=== PATIENT | male | born 1985 | race Caucasian/White ===

== ENCOUNTER 2024-07-31 02:14 | Emergency (ER) | payer OTHER, SELFPAY ==
[2024-07-31 02:24] VITALS: BP 157/97; PULSE 53; TEMP 36.6; O2SAT 96; BMI 24.4
--- NOTE | 2024-07-31 02:35 | CT_ITS ---
The [address] [address] Patient Name: KOLTON HERNANDEZ MRN: [id number] date: 1985 Sex: M Assigned Patient Location: ER Current Patient Location: ER Accession/Order Number: [id number] Exam Date: 07/31/2024 03:10 Report Date: 07/31/2024 04:00 At the request of: IRAM MARKER Procedure: CT abdomen pelvis w con EXAM: CT abdomen pelvis w con HISTORY: RUQ and epigastric abd pain COMPARISON: None. TECHNIQUE: Axial CT images through the abdomen and pelvis were obtained with coronal and sagittal reformats. Dose reduction techniques were achieved by using automated exposure control and/or adjustment of mA and/or kV according to patient size and/or use of iterative reconstruction technique. FINDINGS: There is mild bibasilar atelectasis. Abdomen: There is hepatic steatosis. There is focal fatty sparing along the gallbladder. There is a 1.2 x 1.1 cm enhancing lesion in the right hepatic lobe (series 3, image 44). The spleen is unremarkable. There is no intra or extrahepatic biliary duct dilatation. There is cholelithiasis with pericholecystic inflammation. The pancreas, adrenal glands, kidneys, and bowel loops, including the appendix, are unremarkable. There is no mesenteric or retroperitoneal lymphadenopathy. Pelvis: The bladder and rectum are unremarkable. There is no iliac or inguinal lymphadenopathy. Bone windows show no aggressive osseous lesions. CT/CT abdomen pelvis w con IMPRESSION: 1. Cholelithiasis with mild pericholecystic inflammation. Consider further evaluation with a right upper quadrant ultrasound examination as these findings could represent acute cholecystitis. 2. Hepatic steatosis. 3. Normal appendix. 4. Enhancing lesion in the right hepatic lobe, likely representing a hemangioma. Electronically authenticated by: Andrew JI Date: 07/31/2024 04:00
[2024-07-31 02:41] LABS: Basophils Percent Auto 0.4 % (0.2-2.0); Eosinophils Absolute Auto 0.3 10^3/uL (0.0-0.7); Eosinophils Percent Auto 3.6 % (0.9-7.0); Hematocrit 50.3 % (42.0-54.0); Hemoglobin 17.2 g/dL (14.0-18.0); Immature Granulocytes Abs Auto 0.02 10^3/uL (0.00-0.03); Immature Granulocytes Pct Auto 0.2 % (0.0-0.5); Lymphocytes Absolute Auto 2.5 10^3/uL (1.2-3.8); Lymphocytes Percent Auto 30.3 % (20.5-60.0); Mean Corpuscular HGB Conc 34.2 g/dL (29.9-35.2); Mean Corpuscular Hemoglobin 29.4 pg (25.9-34.0); Mean Platelet Volume 10.1 fL (9.5-13.5); Monocytes Absolute Auto 0.6 10^3/uL (0.3-0.8); Monocytes Percent Auto 6.7 % (1.7-12.0); Neutrophils Absolute Auto 4.8 10^3/uL (1.4-6.5); Neutrophils Percent Auto 58.8 % (43.0-75.0); Platelet Count 275 10^3/uL (150-450); Red Blood Count 5.85 10^6/uL (4.70-6.10); Red Cell Distribution Width 12.3 % (11.0-15.0); White Blood Count 8.2 10^3/uL (4.0-11.0)
[2024-07-31] MEDS: KETOROLAC TROMETHAMINE 30 MG/ML VIAL IVP (02:51)
[2024-07-31] MEDS: ONDANSETRON PF 4 MG/2 ML VIAL IV (02:51)
[2024-07-31] MEDS: 0.9 % SODIUM CHLORIDE 1,000 ML 1000 ML IV (02:51)
[2024-07-31 03:05] LABS: Alanine Aminotransferase 118 U/L (16-63); Albumin Globulin Ratio 1.1; Albumin Level 4.4 g/dL (3.4-5.0); Alkaline Phosphatase 90 U/L (46-116); Anion Gap 11.6; Aspartate Amino Transferase 41 U/L (15-37); BUN Creatinine Ratio 9.8; Bilirubin Total 0.6 mg/dL (0.2-1.0); Calcium 9.5 mg/dL (8.5-10.1); Carbon Dioxide 28.2 mmol/L (21.0-32.0); Chloride 103 mmol/L (98-107); Estimated GFR (African America >60 (>=60 mL/min/1.73m^2); Estimated GFR (Non-African Ame >60 (>=60 mL/min/1.73m^2); Glucose 120 mg/dL (74-106); Potassium 3.8 mmol/L (3.5-5.1); Sodium 139 mmol/L (136-145); Total Protein 8.4 g/dL (6.4-8.2); Troponin I High Sensitivity 21.6 pg/mL (4.0-76.1)
[2024-07-31 03:50] VITALS: BP 113/70; PULSE 66; O2SAT 95
--- NOTE | 2024-07-31 04:05 | ED.ABDPAIN1 ---
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 He states he was already having some abdominal pain when he ate the [place] cheese steak. He has nausea but no vomiting. He states he has chronic GI issues including diarrhea. He does have a physician in [place] where he lives. He denies any chest pain or shortness of breath. He does not drink alcohol. Related Data Home Medications ?Medication ?Instructions ?Recorded ?Confirmed No Known Home Medications 07/31/24 07/31/24 Allergies Allergy/AdvReac Type Severity Reaction Status Date / Time No Known Drug Allergies Allergy Verified 07/31/24 02:28 Review of Systems ROS Status of ROS 10 or more systems reviewed and unremarkable except as noted in history and below PFSH PFSH Social History Little interest or pleasure in doing things: not at all Feeling down, depressed, or hopeless: not at all Exam Narrative Exam Narrative: Vital signs and Nursing Notes reviewed: Patient is a febrile with a normal pulse, normal respiratory rate, he is not hypoxic with pulse ox of 95% on room air General: Awake, alert, oriented, thin uncomfortable appearing adult male, he is holding his epigastrium and right upper quadrant and writhing on the bed, no respiratory distress, no active vomiting HEENT: Normocephalic atraumatic, mucous membranes are moist and pink, eyes are clear, normal conjunctiva, vision is grossly intact Chest: Lungs are clear to auscultation with good air entry, there is no wheezing rhonchi or rales appreciated no accessory muscle use, patient is speaking in complete sentences-no chest wall tenderness to palpation CVS: Regular rate and rhythm S1-S2, no murmurs rubs or gallops, pulses are brisk and equal bilaterally ABD: Softly distended, tenderness in the right upper quadrant with positive Boyd sign and epigastrium. The remainder of the abdominal exam is benign Extremities: Moving all extremities, no lower extremity tenderness or swelling noted, negative Homans' sign, pulses are brisk and equal bilaterally Skin: Normal in appearance without rash,pallor, petechiae or purpura Neuro: No focal deficits Constitutional Vital Signs, click to edit/add: Last Vital Signs Temp 97.9 F 07/31/24 02:24 Pulse 89 07/31/24 04:09 Resp 18 07/31/24 04:09 BP 111/64 07/31/24 04:09 Pulse Ox 95 07/31/24 04:09 O2 Del Method Room Air 07/31/24 04:09 Course Vital Signs Vital signs: Vital Signs Temperature 97.9 F 07/31/24 02:24 Pulse Rate 53 L 07/31/24 02:24 Respiratory Rate 16 07/31/24 02:24 Blood Pressure 157/97 H 07/31/24 02:24 Pulse Oximetry 96 07/31/24 02:24 Oxygen Delivery Method Room Air 07/31/24 02:24 Temperature 97.9 F 07/31/24 02:24 Pulse Rate 89 07/31/24 04:09 Respiratory Rate 18 07/31/24 04:09 Blood Pressure 111/64 07/31/24 04:09 Pulse Oximetry 95 07/31/24 04:09 Oxygen Delivery Method Room Air 07/31/24 04:09 MDM - Abdominal Pain MDM Narrative Medical decision making narrative: This 38-year-old male with no significant medical history who is working locally on the [employer] and lives in [place] presents for evaluation of right upper quadrant and epigastric abdominal pain that started after having a Liat cheese steak sandwich for dinner from a local diner. He is nauseated but not had vomited. He states he has chronic GI issues with diarrhea which is not unusual for him. He has not had any fever. The pain in his right upper quadrant radiates into his flank. He states he has had kidney stones in the past but this does not feel like that. An IV was placed and the patient was medicated with IV fluids, Zofran, I ordered Pepcid but he had taken it prior to arrival and Toradol. This resolved his pain. Routine labs are ordered and are reviewed. He has a normal white count and hemoglobin. There is mild elevation in his AST and ALT. Lipase is normal. Troponin and alkaline phosphatase are normal. CT scan of the abdomen pelvis with IV contrast shows gallstones and thickening of the gallbladder concerning for acute cholecystitis. This was discussed with the patient. I offered him transfer for further evaluation and treatment as he may require surgical removal of his gallbladder but the patient states he is going back to [place] this morning after he leaves the hospital and will follow-up with his physician in [place]. He will be discharged home with a prescription for Zofran and [place]. Low-fat diet was discussed with him at length. He was encouraged to return to the emergency department in his hometown if he has an additional episode of biliary colic. He was given a copy of his CT scan results and his labs to take with him to [place] to share with his family physician and for general surgery referral. Lab Data Labs: Lab Results 07/31/24 Range/Units 02:30 WBC 8.2 (4.0-11.0) 10^3/uL RBC 5.85 (4.70-6.10) 10^6/uL Hgb 17.2 (14.0-18.0) g/dL Hct 50.3 (42.0-54.0) % MCV 86.0 (80.0-94.0) fL MCH 29.4 (25.9-34.0) pg MCHC 34.2 (29.9-35.2) g/dL RDW 12.3 (11.0-15.0) % Plt Count 275 (150-450) 10^3/uL MPV 10.1 (9.5-13.5) fL Neut % (Auto) 58.8 (43.0-75.0) % Lymph % (Auto) 30.3 (20.5-60.0) % [place] % (Auto) 6.7 (1.7-12.0) % Eos % (Auto) 3.6 (0.9-7.0) % Baso % (Auto) 0.4 (0.2-2.0) % Neut # (Auto) 4.8 (1.4-6.5) 10^3/uL Lymph # (Auto) 2.5 (1.2-3.8) 10^3/uL [place] # (Auto) 0.6 (0.3-0.8) 10^3/uL Eos # (Auto) 0.3 (0.0-0.7) 10^3/uL Baso # (Auto) 0.0 (0.0-0.1) 10^3/uL Abs Immat Gran (auto) 0.02 (0.00-0.03) 10^3/uL Imm/Tot Granulo (auto) 0.2 (0.0-0.5) % Sodium 139 (136-145) mmol/L Potassium 3.8 (3.5-5.1) mmol/L Chloride 103 (98-107) mmol/L Carbon Dioxide 28.2 (21.0-32.0) mmol/L Anion Gap 11.6 BUN 13.0 (7.0-18.0) mg/dL Creatinine 1.33 H (0.70-1.30) mg/dL Est GFR ( Amer) >60 (>=60 mL/min/1.73m^2) Est GFR (Non-Af Amer) >60 (>=60 mL/min/1.73m^2) BUN/Creatinine Ratio 9.8 Glucose 120 H (74-106) mg/dL Calcium 9.5 (8.5-10.1) mg/dL Total Bilirubin 0.6 (0.2-1.0) mg/dL AST 41 H (15-37) U/L ALT 118 H (16-63) U/L Alkaline Phosphatase 90 (46-116) U/L Troponin I High Sens 21.6 (4.0-76.1) pg/mL Total Protein 8.4 H (6.4-8.2) g/dL Albumin 4.4 (3.4-5.0) g/dL Globulin 4.0 g/dL Albumin/Globulin Ratio 1.1 Lipase 52.0 (16.0-77.0) U/L Discharge Plan Discharge Chief Complaint: Abdominal Pain Clinical Impression: Cholecystitis Patient Disposition: Home, Self-Care Time of Disposition Decision: 04:21 Prescriptions / Home Meds: No Action No Known Home Medications Print Language: [place] Instructions: Cholecystitis (ED), Gallstones (ED), Low Fat Diet (ED) Referrals: Physician,Non-Staff, MD [Primary Care Provider] - 1 week
[2024-07-31 04:09] VITALS: BP 111/64; PULSE 89; O2SAT 95
[2024-07-31] MEDS: HYDROCODONE/ACET 5-325 MG TABLET 2 TAB PO (04:44)
== END 2024-07-31 04:56 | disposition home or self-care (01) ==
PROVIDERS: Emergency Provider Emergency Medicine
DX: K81.9 Cholecystitis, unspecified (principal)
CPT/HCPCS: 36415; 74177; 80053; 83690; 84484; 85025; 96374; 96375; 99284; J1885; J2405; Q9967